=== PATIENT | female | born 1935 | race Caucasian/White ===

== ENCOUNTER → 2023-07-06 12:33 | Outpatient (REF) | payer MEDICARE, BC, SELFPAY | LOC: RAD 12:33 | PROVIDERS: ATTENDING PHYSICIAN Internal Medicine Cardiovascular Disease; FAMILY PHYSICIAN Internal Medicine Rheumatology | DX: M79.604 Pain in right leg (principal); M79.605 Pain in left leg | CPT/HCPCS: 93922; 93925 ==

== ENCOUNTER → 2023-12-16 10:46 | Outpatient (REF) | payer MEDICARE, BC, SELFPAY | LOC: HWRAD 10:46 | PROVIDERS: ATTENDING PHYSICIAN Internal Medicine Rheumatology | DX: M81.0 Age-related osteoporosis without current pathological fracture (principal) | CPT/HCPCS: 77080; 77081 ==

== ENCOUNTER 2025-01-16 07:33 | Emergency (ER) | payer MEDICARE, BC, SELFPAY ==
[2025-01-16] VITALS (8 sets, daily range): BP systolic 119–162; BP diastolic 51–82; BMI 21.7
--- NOTE | 2025-01-16 08:10 | ED.GENMED ---
History of Present Illness
<Yadira Linda PA-C - Last Filed: 01/16/25 15:05>
General
Chief Complaint: Fall
Source: patient and family
Exam Limitations: none
Time Seen by Provider: 01/16/25 07:58
History of Present Illness
History of Present Illness:
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 Patient was walking up the stairs around 9 PM. There was a light bulb that was out. She deals with chronic
vertigo and became dizzy and disoriented and was unable to see the step. She fell backwards down approximately 4 steps. She remembers waking up on the floor and believes she lost consciousness. Patient got up after the fall and went to bed but
she was unable to sleep all night due to neck pain and a headache. She arrives with bilateral periorbital ecchymosis and is unable to open her right eye. She denies any visual changes prior to this swelling developing. She also has bilateral
shoulder pain. She does not take any blood thinners. Cervical collar placed in triage.
Phy Exam
<Yadira Linda PA-C - Last Filed: 01/16/25 15:05>
General Physical Exam
General Presentation: no apparent distress
General Skin: warm and dry
General Habitus: elderly
General Mental: alert
ENT Exam
ENT Exam: other (Large amount of R periorbital ecchymosis extending to the R temporal region. Unable to visualize eye 2/2 degree of swelling. Small amount of L periorbital ecchymosis. )
Additional ENT: Cervical collar in place.
Eye Exam
Eye Exam: other (L pupil is round and reactive)
Pulmonary Exam
Pulmonary Exam: lungs clear, no respiratory distress, no rales, chest non tender, no crackles, no rhonchi and no wheezing
Gastrointestinal Exam
Gastrointestinal Exam: non tender, soft and non distended
Neurological Exam
Neurological Exam: alert
[place] Coma Scale
Eye Opening: Spontaneous
Verbal Response: Oriented
Motor Response: Obeys Commands
GCS Total Score: 15
Skin Exam
Skin Exam: warm/dry and other (Contusion to R posterior shoulder)
Psychiatric Exam
Psychiatric Exam: normal mood/affect
<Demarco Madrid DO - Last Filed: 01/16/25 09:38>
[place] Coma Scale
GCS Total Score: 15
Course
<Yadira Linda PAAndrea - Last Filed: 01/16/25 15:05>
Orders/Labs/Results
Orders:
Orders
01/16/25 08:06
CT Cervical Spine W/o Iv Contr Urgent
Comment:
Reason For Exam: fall, neck pain
CT Facial Bones W/o Iv Contras Urgent
Comment:
Reason For Exam: fall, bilateral periorbital ecchymosis
Ice Pack-Treatment DIRECTED
Location: R eye
Acetaminophen [Tylenol] 1,000 mg PO NOW STA
CR Shoulder - Left Min 2 View* Urgent
Comment:
Reason For Exam: pain, fall
CR Shoulder - Right Min 2 View Urgent
Comment:
Reason For Exam: pain, fall
01/16/25 08:07
CT Head W/o Iv Contrast Urgent
Comment:
Reason For Exam: fall, head injury
01/16/25 08:22
Complete Blood Count/With Diff Urgent
Comprehensive Metabolic Panel Urgent
PTT Urgent
Prothrombin Time Urgent
01/16/25 09:37
Morphine Sulfate 4 mg IV NOW STA
01/16/25 13:44
Morphine Sulfate 4 mg IV NOW STA
Abnormal Lab Results
01/16/25
08:22
WBC 14.3 H 10^3/uL
(4.8-10.8)
RBC 3.23 L 10^6/uL
(4.20-5.40)
Hgb 10.2 L g/dL
(12.0-16.0)
Hct 30.4 L %
(37.0-47.0)
MCH 31.6 H pg
(27.0-31.0)
Plt Count 33 L 10^3/uL
(130-400)
Abs Immat Gran (auto) 0.1 H 10^3/uL
(0-0.05)
Absolute Neuts (auto) 11.2 H 10^3/uL
(1.4-6.5)
Absolute Monos (auto) 1.0 H 10^3/uL
(0.1-0.6)
Neutrophils % 78.2 H %
(42.2-75.2)
Lymphocytes % 13.3 L %
(20.5-51.1)
BUN 25 H mg/dl
(7-17)
Glucose 115 H mg/dl
(70-99)
Calcium 10.5 H mg/dl
(8.4-10.2)
01/16/25 08:22
01/16/25 08:22
Vital Signs
Initial and Last Documented VS:
Initial Vital Signs
Temp Pulse Resp BP Pulse Ox
99.0 F 102 18 162/79 98
01/16/25 07:34 01/16/25 07:34 01/16/25 07:34 01/16/25 07:34 01/16/25 07:34
Last Documented Vital Signs
Temp Pulse Resp BP Pulse Ox
98.2 F 86 18 121/51 96
01/16/25 11:00 01/16/25 14:00 01/16/25 14:00 01/16/25 14:00 01/16/25 13:00
<Demarco Madrid, DO - Last Filed: 01/16/25 09:38>
Orders/Labs/Results
Orders:
Orders
01/16/25 08:06
CT Cervical Spine W/o Iv Contr Urgent
Comment:
Reason For Exam: fall, neck pain
CT Facial Bones W/o Iv Contras Urgent
Comment:
Reason For Exam: fall, bilateral periorbital ecchymosis
Ice Pack-Treatment DIRECTED
Location: R eye
Acetaminophen [Tylenol] 1,000 mg PO NOW STA
CR Shoulder - Left Min 2 View* Urgent
Comment:
Reason For Exam: pain, fall
CR Shoulder - Right Min 2 View Urgent
Comment:
Reason For Exam: pain, fall
01/16/25 08:07
CT Head W/o Iv Contrast Urgent
Comment:
Reason For Exam: fall, head injury
01/16/25 08:22
Complete Blood Count/With Diff Urgent
Comprehensive Metabolic Panel Urgent
PTT Urgent
Prothrombin Time Urgent
01/16/25 09:37
Morphine Sulfate 4 mg IV NOW STA
01/16/25 13:44
Morphine Sulfate 4 mg IV NOW STA
Abnormal Lab Results
01/16/25
08:22
WBC 14.3 H 10^3/uL
(4.8-10.8)
RBC 3.23 L 10^6/uL
(4.20-5.40)
Hgb 10.2 L g/dL
(12.0-16.0)
Hct 30.4 L %
(37.0-47.0)
MCH 31.6 H pg
(27.0-31.0)
Plt Count 33 L 10^3/uL
(130-400)
Abs Immat Gran (auto) 0.1 H 10^3/uL
(0-0.05)
Absolute Neuts (auto) 11.2 H 10^3/uL
(1.4-6.5)
Absolute Monos (auto) 1.0 H 10^3/uL
(0.1-0.6)
Neutrophils % 78.2 H %
(42.2-75.2)
Lymphocytes % 13.3 L %
(20.5-51.1)
BUN 25 H mg/dl
(7-17)
Glucose 115 H mg/dl
(70-99)
Calcium 10.5 H mg/dl
(8.4-10.2)
01/16/25 08:22
01/16/25 08:22
Vital Signs
Initial and Last Documented VS:
Initial Vital Signs
Temp Pulse Resp BP Pulse Ox
99.0 F 102 18 162/79 98
01/16/25 07:34 01/16/25 07:34 01/16/25 07:34 01/16/25 07:34 01/16/25 07:34
Last Documented Vital Signs
Temp Pulse Resp BP Pulse Ox
98.2 F 86 18 121/51 96
01/16/25 11:00 01/16/25 14:00 01/16/25 14:00 01/16/25 14:00 01/16/25 13:00
<Yadira Linda PA-C - Last Filed: 01/16/25 15:05>
MDM/Problems Addressed
Differential Diagnosis Includes:
89yoF here after a fall last night. Fell backwards down 4 steps. Thinks she lost consciousness. Arrives with a headache and neck pain. Large amount of R periorbital ecchymosis noted on exam and I am unable to visualize R eye. Hx of ITP. Differential
diagnosis includes but is not limited to: intracranial hemorrhage, fracture, globe rupture
Initial ED plan: Check basic labs, CT head/facial bones/cervical spine, and bilateral shoulder x-rays. Ice and Tylenol for pain.
<Yadira Linda PA-C - Last Filed: 01/16/25 15:05>
*Pulse Oximetry
SaO2: 97
Oxygen Mode of Delivery: Room air
Patient hypoxic: no
*Critical Care Note
Total Time (30-74mins, 75-104mins- exclusive of procedures): 35
<Yadira Linda PA-C - Last Filed: 01/16/25 15:05>
Update Note
Update Note:
Imaging reveals a type II odontoid fracture. No other injuries on CT. Platelet count 33. Cervical collar in place. Findings discussed with patient and family and reviewed need for transfer to trauma center with neurosurgical capabilities.
Family prefers [facility]. I initially spoke with the trauma attending at [facility] who requested that I speak with the spine team prior to patient being accepted. Significant delay getting in contact with spine team. I eventually received a call
back from the [facility] transfer rome and patient accepted by Dr. Rodriguez. Patient transported in stable condition. Neuro status changed throughout ED stay.
ED Attending Note
<Yadira Linda PA-C - Last Filed: 01/16/25 15:05>
-
Portions of this chart may have been created with voice recognition software.� Occasional wrong word or��sound alike� substitutions may have occurred due to the inherent limitations of voice recognition software.
<Demarco Madrid DO - Last Filed: 01/16/25 09:38>
ED Attending Note
Patient seen and examined by attending physician: Yes
I performed the substantive portion of visit, reviewed & personally made and approve the management plan that is documented in note by myself or AINSLEY.: Yes
ED Attending Note:
I have seen and evaluated the patient with a [id number] encounter. I have spoken to the advance practicer provider and involved in the medical history, the physical exam, medical decision making.
Evaluation and management service: agree unless noted differently below.
Results interpretation: agree unless noted differently below.
Focused HPI: 89-year-old female presenting with headache and neck pain after fall last night. Patient states she tripped. Patient complaining of neck pain. Cervical collar placed
Physical exam: Bruising and ecchymosis noted to right orbit. Patient in cervical collar. Patient moving all 4 extremities
Medical Decision Making: Given the fall, CT head, cervical spine and maxillofacial was performed. Patient found to have a type II dens fracture. Patient will require transfer to tertiary facility that has neurosurgical capabilities
Discharge Plan
Departure
Patient Disposition: Acute Care Hospital
Date of Disposition: 01/16/25
Time of Disposition: 12:33
Discharge Problem:
Closed type II fracture of odontoid process
Referrals:
Davion Guerrero DO [Family Provider, Rheumatology]
Hospital Transfer
Other hospital: [facility]
I certify that the patient requires transfer: Yes
Discussed case with accepting physician: Dr. Rodriguez
Reason for transfer: higher level of care, medical necessity, availability of service and specialties available
Interventions
Interventions:
*Risk Screen - Suicide Last Done: 01/16/25 07:34
*General Assessment Last Done: 01/16/25 07:34
*Neglect/Abuse Screening Last Done: 01/16/25 07:34
*Nursing Disposition Last Done: 01/16/25 14:51
ED-Musculoskeletal Assessment Last Done: 01/16/25 08:00
ED- Neurological Assessment Last Done: 01/16/25 08:00
ED-Skin Assessment Last Done: 01/16/25 08:00
Discharge Date and Time
Discharge Date/Time: 01/16/25 14:55
Print Language: CYMRO
[2025-01-16] MEDS: TYLENOL 1000 MG PO (08:26)
[2025-01-16 08:49] LABS: Hematocrit 30.4 % (37.0-47.0); Hemoglobin 10.2 g/dL (12.0-16.0); Mean Corp Hgb Conc. 33.6 g/dL (33.0-37.0); Mean Corpuscular Volume 94.1 fL (81.0-99.0); Nucleated Red Blood Cells % 0 %; Red Cell Dist. Width 13.8 % (11.5-14.5)
[2025-01-16 08:51] LABS: INR 1.02; PT 13.5 Sec (11.4-14.6)
[2025-01-16 08:52] LABS: APTT 28.1 Sec (23.4-35.0)
[2025-01-16 08:56] LABS: ALT (SGPT) 20 U/L (0-35); AST (SGOT) 34 U/L (14-36); Albumin 4.3 g/dl (3.5-5.0); Alkaline Phosphatase 92 U/L (38-126); Blood Urea Nitrogen 25 mg/dl (7-17); Calcium 10.5 mg/dl (8.4-10.2); Carbon Dioxide 25 mmol/L (22-30); Chloride 107 mmol/L (98-107); Estimated Creatinine Clearance 40 ml/min; Glucose 115 mg/dl (70-99); Potassium 4.4 mmol/L (3.5-5.1); Sodium 137 mmol/L (135-145); Total Protein 7.0 g/dl (6.3-8.2); eGFR > 60.00
[2025-01-16 09:07] LABS: Platelet Count 33 10^3/uL (130-400)
[2025-01-16] MEDS: MORPHINE SULFATE 4 MG IV ×2 (09:42→13:56)
== END 2025-01-16 14:55 | disposition short-term general hospital (02) ==
LOC: EMR 07:33
PROVIDERS: Physician Assistant; EMERGENCY PHYSICIAN Student in an Organized Health Care Education/Training Program; FAMILY PHYSICIAN Internal Medicine Rheumatology
DX: S12.110A Anterior displaced Type II dens fracture, initial encounter for closed fracture (principal); S00.11XA Contusion of right eyelid and periocular area, initial encounter; S00.12XA Contusion of left eyelid and periocular area, initial encounter; M25.512 Pain in left shoulder; M25.511 Pain in right shoulder; W10.8XXA Fall (on) (from) other stairs and steps, initial encounter; Z86.2 Personal history of diseases of the blood and blood-forming organs and certain disorders involving the immune mechanism
CPT/HCPCS: 99291; 96374; 96376; 70450; 70486; 72125; 73030; 80053; 85025; 85610; 85730

== ENCOUNTER 2025-02-03 22:32 | Inpatient (IN) | payer MEDICARE, BC, SELFPAY ==
[2025-02-03] VITALS (14 sets, daily range): BP systolic 91–139; BP diastolic 43–115; BMI 22.3
[2025-02-03 13:42] LABS: Hematocrit 28.6 % (37.0-47.0); Hemoglobin 9.0 g/dL (12.0-16.0); Mean Corp Hgb Conc. 31.5 g/dL (33.0-37.0); Mean Corpuscular Volume 97.3 fL (81.0-99.0); Nucleated Red Blood Cells % 0 %; Platelet Count 9 10^3/uL (130-400); Red Cell Dist. Width 15.4 % (11.5-14.5)
[2025-02-03 13:56] LABS: ALT (SGPT) 11 U/L (0-35); AST (SGOT) 16 U/L (14-36); Albumin 3.5 g/dl (3.5-5.0); Alkaline Phosphatase 101 U/L (38-126); Blood Urea Nitrogen 26 mg/dl (7-17); Calcium 8.8 mg/dl (8.4-10.2); Carbon Dioxide 25 mmol/L (22-30); Chloride 108 mmol/L (98-107); Glucose 87 mg/dl (70-99); Potassium 4.5 mmol/L (3.5-5.1); Sodium 136 mmol/L (135-145); Total Protein 6.0 g/dl (6.3-8.2); eGFR > 60.00
--- NOTE | 2025-02-03 17:56 | ED.GENMED ---
History of Present Illness
<Brad Almodovar PA-C - Last Filed: 02/03/25 20:29>
General
Chief Complaint: Abdominal Symptoms
Source: patient
Exam Limitations: none
Time Seen by Provider: 02/03/25 17:24
History of Present Illness
History of Present Illness:
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 She notes she is having a
loose stool every 3 to 4 days. The daughter states it is very foul in odor and she is concerned she may have C. difficile. While at [facility], the patient developed a urinary tract infection was on Macrobid for about a week. The stool was not
black in color. They deny any new bleeding or bruising but still no resolving bruising over the face and chest from her prior fall. She was recently cleared from having to wear the collar at all times by the neurosurgeon. She is still to wear
collar when ambulating. Patient notes generalized fatigue and abdominal discomfort as well. There has been no fever or vomiting. No chest pain. No other complaints. Upon discharge from [facility] her platelet count was 50.
Phy Exam
<Brad Almodovar PA-C - Last Filed: 02/03/25 20:29>
Physical Exam
Physical Exam:
General: Cachectic female no acute respiratory distress
HEENT: Normal cephalic ecchymosis noted in the forehead face and neck which seems to be not new
Heart: Regular rate and rhythm
Lungs: Clear no wheeze
Abdomen soft diffusely tender nondistended
Extremities: Mild edema bilateral lower extremities
Course
<Brad Almodovar PA-C - Last Filed: 02/03/25 20:29>
Orders/Labs/Results
Orders:
Orders
02/03/25 13:25
Crisis Consult Urgent
Reason for Consult: depression
02/03/25 13:28
Complete Blood Count/With Diff Urgent
Comprehensive Metabolic Panel Urgent
02/03/25 17:53
CT Abd/pel Without Iv Or Oral Urgent
Comment:
Reason For Exam: abd pain, diarrhea
02/03/25 17:56
STOOL [C difficile Antigen & Toxins] Urgent
MELODY Source: Feces/Stool
Specimen Description:
Stool Culture Urgent
MELODY Source: Feces/Stool
Specimen Description:
02/03/25 18:15
Type+Screen Urgent
NT-proBNP Urgent
02/03/25 18:22
Morphine Sulfate 4 mg IV NOW STA
02/03/25 18:28
Blood Bank Products [* Blood Bank Products] Urgent
Blood Bank Products: *Plt Single Donor Leuko
Quantity: 1
Transfuse Today: Yes
Reason: Thrombocytopenia
02/03/25 18:29
Dexamethasone Sod Phosphate [Decadron] 10 mg IV NOW STA
02/03/25 20:24
0.9% Sodium Chloride 500 ml [Nss] 500 ml IV BOLUS
Abnormal Lab Results
02/03/25
13:28
WBC 12.8 H 10^3/uL
(4.8-10.8)
RBC 2.94 L 10^6/uL
(4.20-5.40)
Hgb 9.0 L g/dL
(12.0-16.0)
Hct 28.6 L %
(37.0-47.0)
MCHC 31.5 L g/dL
(33.0-37.0)
RDW 15.4 H %
(11.5-14.5)
Plt Count 9 L* 10^3/uL
(130-400)
MPV 14.2 H fL
(7.4-10.4)
Abs Immat Gran (auto) 0.1 H 10^3/uL
(0-0.05)
Absolute Neuts (auto) 9.5 H 10^3/uL
(1.4-6.5)
Absolute Monos (auto) 0.9 H 10^3/uL
(0.1-0.6)
Lymphocytes % 13.4 L %
(20.5-51.1)
Chloride 108 H mmol/L
(98-107)
BUN 26 H mg/dl
(7-17)
Total Protein 6.0 L g/dl
(6.3-8.2)
02/03/25 13:28
02/03/25 13:28
Vital Signs
Initial and Last Documented VS:
Initial Vital Signs
Temp Pulse Resp BP Pulse Ox
98.3 F 80 19 109/43 98
02/03/25 13:17 02/03/25 13:17 02/03/25 13:17 02/03/25 13:17 02/03/25 13:17
Last Documented Vital Signs
Temp Pulse Resp BP Pulse Ox
98.3 F 84 13 139/47 96
02/03/25 13:17 02/03/25 18:45 02/03/25 18:45 02/03/25 18:16 02/03/25 18:45
<Demarco Madrid, DO - Last Filed: 02/03/25 18:27>
Orders/Labs/Results
Orders:
Orders
02/03/25 13:25
Crisis Consult Urgent
Reason for Consult: depression
02/03/25 13:28
Complete Blood Count/With Diff Urgent
Comprehensive Metabolic Panel Urgent
02/03/25 17:53
CT Abd/pel Without Iv Or Oral Urgent
Comment:
Reason For Exam: abd pain, diarrhea
02/03/25 17:56
STOOL [C difficile Antigen & Toxins] Urgent
MELODY Source: Feces/Stool
Specimen Description:
Stool Culture Urgent
MELODY Source: Feces/Stool
Specimen Description:
02/03/25 18:15
Type+Screen Urgent
NT-proBNP Urgent
02/03/25 18:22
Morphine Sulfate 4 mg IV NOW STA
02/03/25 18:28
Blood Bank Products [* Blood Bank Products] Urgent
Blood Bank Products: *Plt Single Donor Leuko
Quantity: 1
Transfuse Today: Yes
Reason: Thrombocytopenia
02/03/25 18:29
Dexamethasone Sod Phosphate [Decadron] 10 mg IV NOW STA
02/03/25 20:24
0.9% Sodium Chloride 500 ml [Nss] 500 ml IV BOLUS
Abnormal Lab Results
02/03/25
13:28
WBC 12.8 H 10^3/uL
(4.8-10.8)
RBC 2.94 L 10^6/uL
(4.20-5.40)
Hgb 9.0 L g/dL
(12.0-16.0)
Hct 28.6 L %
(37.0-47.0)
MCHC 31.5 L g/dL
(33.0-37.0)
RDW 15.4 H %
(11.5-14.5)
Plt Count 9 L* 10^3/uL
(130-400)
MPV 14.2 H fL
(7.4-10.4)
Abs Immat Gran (auto) 0.1 H 10^3/uL
(0-0.05)
Absolute Neuts (auto) 9.5 H 10^3/uL
(1.4-6.5)
Absolute Monos (auto) 0.9 H 10^3/uL
(0.1-0.6)
Lymphocytes % 13.4 L %
(20.5-51.1)
Chloride 108 H mmol/L
(98-107)
BUN 26 H mg/dl
(7-17)
Total Protein 6.0 L g/dl
(6.3-8.2)
02/03/25 13:28
02/03/25 13:28
Vital Signs
Initial and Last Documented VS:
Initial Vital Signs
Temp Pulse Resp BP Pulse Ox
98.3 F 80 19 109/43 98
02/03/25 13:17 02/03/25 13:17 02/03/25 13:17 02/03/25 13:17 02/03/25 13:17
Last Documented Vital Signs
Temp Pulse Resp BP Pulse Ox
98.3 F 84 13 139/47 96
02/03/25 13:17 02/03/25 18:45 02/03/25 18:45 02/03/25 18:16 02/03/25 18:45
<Brad Almodovar PA-C - Last Filed: 02/03/25 20:29>
MDM/Problems Addressed
Differential Diagnosis Includes:
Patient with fatigue abdominal pain loose stool recent antibiotic and hospital stay. Consider colitis versus enteritis versus C. difficile versus electrolyte abnormality. She does have a history of idiopathic thrombocytopenia. Will check labs.
<Brad Almodovar PA-C - Last Filed: 02/03/25 20:29>
*Pulse Oximetry
SaO2: 98
Patient hypoxic: no
*Critical Care Note
Total Time (30-74mins, 75-104mins- exclusive of procedures): Not Applicable
<Brad Almodovar PA-C - Last Filed: 02/03/25 20:29>
Update Note
Update Note:
CT demonstrates colitis of the distal colon. Labs reviewed white count 12.8. Platelets are 9. Consent signed for platelet transfusion. Unit ordered. Decadron given. Patient afebrile with stable vital signs otherwise. She has brown stool that
is heme-negative on exam. Will admit for colitis pending stool studies with thrombocytopenia
ED Attending Note
<Brad Almodovar PA-C - Last Filed: 02/03/25 20:29>
-
Portions of this chart may have been created with voice recognition software.� Occasional wrong word or��sound alike� substitutions may have occurred due to the inherent limitations of voice recognition software.
<Demarco Madrid DO - Last Filed: 02/03/25 18:27>
ED Attending Note
Patient seen and examined by attending physician: Yes
I performed the substantive portion of visit, reviewed & personally made and approve the management plan that is documented in note by myself or AINSLEY.: Yes
ED Attending Note:
I have seen and evaluated the patient with a [id number] encounter. I have spoken to the advance practicer provider and involved in the medical history, the physical exam, medical decision making.
Evaluation and management service: agree unless noted differently below.
Results interpretation: agree unless noted differently below.
Focused HPI: 89-year-old female presenting for evaluation of abdominal discomfort, weakness, fatigue and diarrhea. Patient was recently on Macrobid for UTI. Family at bedside has medical background and concerned that the stool smelled like C.
difficile. Of note, patient had a recent fall and diagnosed with a C2 fracture which is treated medically
Physical exam: Dry mucous membranes. Old bruising noted to face. No significant abdominal tenderness noted
Medical Decision Making: Given her age, will obtain CT looking for any intra-abdominal pathology to explain her pain. Patient found to be thrombocytopenic. She does have a history of ITP. Will transfuse platelets while providing IV steroids.
Will try and obtain stool culture for C. difficile
Discharge Plan
Departure
Patient Disposition: Admit
Date of Disposition: 02/03/25
Time of Disposition: 20:28
Presentation/result/management discussed w/ accepting MD/DO: Hospitalist
Discharge Problem:
Thrombocytopenia, Colitis
Prescriptions:
No Action
valsartan 80 mg Tablet
80 mg PO DAILY
carvedilol [Coreg] 3.125 mg Tablet
3.125 mg PO BID
escitalopram oxalate [Lexapro] 5 mg Tablet
5 mg PO HS
ezetimibe-simvastatin 10-40 mg Tablet
1 tab PO DAILY
lidocaine 4 % Adhesive Patch,Medicated
1 patch TOPICAL DAILYPRN PRN (Reason: back of neck)
cyanocobalamin (vitamin B-12) 1,000 mcg Tablet
1,000 mcg PO DAILY
acetaminophen [Tylenol Extra Strength] 500 mg Tablet
1,000 mg PO Q6HPRN PRN (Reason: mild pain)
ascorbic acid (vitamin C) [Vitamin C] 500 mg Tablet
500 mg PO DAILY
carboxymethylcellulose sodium [Refresh Tears] 0.5 % Drops
1 drp BOTH EYES BIDPRN PRN (Reason: dryness)
ferrous sulfate 325 mg (65 mg iron) Tablet
325 mg PO Q48H
nicotine 21 mg/24 hr Patch 24 Hour
1 patch TRANSDERMAL DAILY
gabapentin 100 mg Capsule
100 mg PO TID
PreserVision AREDS 2,148 mcg-113 mg-45 mg-17.4mg Tablet
1 tab PO BID
baclofen 5 mg Tablet
2.5 mg PO BID
Referrals:
Davion Guerrero DO [Family Provider, Rheumatology]
Interventions
Interventions:
*General Assessment Last Done: 02/03/25 13:20
*Neglect/Abuse Screening Last Done: 02/03/25 13:20
*ED COVID-19 Vaccine History Last Done: 02/03/25 13:20
*ED Influenza Vaccine History Last Done: 02/03/25 13:20
[facility] Fall Risk Assessment Tool Last Done: 02/03/25 18:14
*Risk Screen - Suicide (C-SSRS) Last Done: 02/03/25 13:20
RF-Afmayb-[id number] Assessment Last Done: 02/03/25 18:15
Discharge Date and Time
Print Language: PALAUAN
[2025-02-03] MEDS: MORPHINE SULFATE 4 MG IV (18:37)
[2025-02-03] MEDS: DECADRON 10 MG IV (18:38)
--- NOTE | 2025-02-03 20:50 | HPS.HSE ---
Family Physician
-
Family Physician: Davion Guerrero
Chief Complaint
-
abdominal pain and foul smelling stools
History of Present Illness
Patient is a 89-year-old female with past medical history significant for hypertension, hyperlipidemia, thrombocytopenia, anemia, osteopenia, ulcerative proctitis and depression/anxiety who presented to [facility] ED for evaluation of abdominal pain and
foul smelling stools. Patient with recent hospitalization at [facility]. Patient sustained a fall on 01/15/2025, found to have C2 fracture and transferred to [facility]. During stay at [facility] patient was started on Macrobid for UTI. Since discharge and returning
home patient and daughter report loose stools and foul smelling stool. She also endorses intermittent chills and increased fatigue over past 3 days. Denies fevers, cough, shortness of breath, chest pain, nausea, vomiting, constipation or urinary
symptoms.
Medical History
Past Medical History
Past Medical History: Reports Other
Additional Past Medical History:
hypertension
hyperlipidemia
thrombocytopenia
anemia
osteopenia
ulcerative proctitis
depression/anxiety
Past Surgical History: Reports Other
Additional Past Surgical History:
Hysteroscopy/em ablation(1995)
Bone Marrow [id number]
Social History
Tobacco: Smoker (1/2 pack per day, last cigarette 01/15/2025, currently using patch )
Alcohol: None
Drug: None
Living: Alone
Employment: Employed
Family History
Family History: Not pertinent
Allergies / Home Medications
Allergies reflects when Allergies were last updated in [employer].
Home Medications with original date entered in [employer]
Allergy/Medication List:
Allergies
Allergy/AdvReac Type Severity Reaction Status Date / Time
No Known Allergies Allergy Unverified 01/16/25 07:40
Home Medications
acetaminophen 500 mg tablet (Tylenol Extra Strength) 1,000 mg PO Q6HPRN PRN mild pain 02/03/25
ascorbic acid (vitamin C) 500 mg tablet (Vitamin C) 500 mg PO DAILY Supplement 02/03/25
baclofen 5 mg tablet 2.5 mg PO BID Muscle Spasms 02/03/25
carboxymethylcellulose sodium 0.5 % eye drops (Refresh Tears) 1 drp BOTH EYES BIDPRN PRN dryness 02/03/25
carvedilol 3.125 mg tablet (Coreg) 3.125 mg PO BID Blood Pressure 02/03/25
cyanocobalamin (vitamin B-12) 1,000 mcg tablet 1,000 mcg PO DAILY Supplement 02/03/25
escitalopram oxalate 5 mg tablet (Lexapro) 5 mg PO HS Mental Health/Anxiety 02/03/25
ezetimibe 10 mg-simvastatin 40 mg tablet 1 tab PO DAILY High Cholesterol 02/03/25
ferrous sulfate 325 mg (65 mg iron) tablet 325 mg PO Q48H Supplement 02/03/25
gabapentin 100 mg capsule 100 mg PO TID Neurological Condition 02/03/25
lidocaine 4 % topical patch 1 patch topical DAILYPRN PRN back of neck 02/03/25
nicotine 21 mg/24 hr daily transdermal patch 1 patch transdermal DAILY 02/03/25
valsartan 80 mg tablet 80 mg PO DAILY Heart Disease/Condition 02/03/25
vitamins A,C,N-mvdq-dagynv 2,148 mcg-113 mg-45 mg-17.4 mg tablet (PreserVision AREDS) 1 tab PO BID Supplement 02/03/25
Review of Systems
-
History Source: Patient
Constitutional: Reports Chills; Denies Fever
EENT: Denies Sore Throat
Respiratory: Denies Cough, Hemoptysis or Trouble Breathing
Cardiac: Denies Chest Pain, Diaphoresis, Palpitations or Syncope
Abdomen/GI: Reports Abdominal Pain and Diarrhea; Denies Nausea or Vomiting
: Denies Dysuria, Frequency or Urgency
Musculoskeletal: Denies Joint Pain
Skin: Denies Rash
Neurological: Denies Dizzy, Headache, Weakness or Numbness
Physical Exam
Vital Signs
Vital Signs
Temp Pulse Resp BP Pulse Ox
98.3 F 84 13 139/47 96
02/03/25 13:17 02/03/25 18:45 02/03/25 18:45 02/03/25 18:16 02/03/25 18:45
Physical Exam
General: Well Developed, Well Nourished, No Apparent Distress, Comfortable and Conversant
HEENT: NormoCephalic, Moist mucous membranes, PERRLA, Nose Appears Normal and Ears Appear Normal
Respiratory: Clear and Non Labored Respirations; No Wheezes, Rales or Rhonchi
Cardiac: S1/S2 and Regular Rhythm; No Murmur, Rub or Gallop
GI: Soft, Non Tender, Non Distended and Normal Bowel Sounds
Musculoskeletal: No Clubbing, No Cyanosis and No Edema
Skin: Warm, IV/Catheter Site and Other (diffuse healing bruising noted over head and body from fall on 01/15/2025)
Neuro: Awake and AO x 3
Psych: Calm and Intact Judgment/Insight
Laboratory Results
-
02/03/25 13:28
02/03/25 13:28
Laboratory Results
Total Bilirubin 0.4 mg/dl (0.2-1.3) 02/03/25 13:28
AST 16 U/L (14-36) 02/03/25 13:28
ALT 11 U/L (0-35) 02/03/25 13:28
Alkaline Phosphatase 101 U/L (38-126) 02/03/25 13:28
Data Reviewed
-
Lab Data: Labs Reviewed by me (WBC 12.8, hgb 9.0, hct 28.6, plt 9)
Impression/Plan
-
IMPRESSION/PLAN:
#abdominal pain, foul smelling stool 2/2 c. diff vs. colitis vs. enteritis
foul smelling loose stool, chills and increased fatigue
WBC 12.8
Abd/Pel CT: Mild to moderate wall thickening of the descending colon and sigmoid colon, most suggestive of a nonspecific colitis. Limited by absence of intravenous and oral contrast.
Other chronic findings, as detailed above.
- Admit to med/surg
- Consult GI
- hold on ABX for now
- IVF NS 80cc/hr
#thrombocytopenia
plt 9
- Consult hematology
- no active GIB
- blood consent obtained in ED, scanned to chart
- 1 unit platelets ordered
- trend CBC
#hypertension
- continue carvedilol and valsartan
#hyperlipidemia
- continue ezetimibe-simvastatin
#anemia
hgb 9.0, hct 28.6
- trend H/H
- continue ferrous sulfate
#depression/anxiety
- continue escitalopram
#nicotine dependency
- continue patch
- encourage continue cessation
#osteopenia
#ulcerative proctitis
Code status: DNR
DVT prophylaxis: SCDs
--- NOTE | 2025-02-03 20:58 | W.PN.UPDATE ---
Update Note
Progress Note Update
This note serves as an addendum to the H&P by driving teacher Agata Stevens
HPI
89F
PHX significant HX ITP
- recent HX fall with C2 Fx seen at ER then transferred to [place]
- pw generalized weakness and ongoing loose stooll every 3 to 4 days.
- Daughter reports very foul in odor and concerned about C. difficile. The stool was not black in color.
- While at [facility], the patient developed UTI was on Macrobid for about a week.
- deny any new bleeding or bruising but still no resolving bruising over the face and chest from her prior fall.
- recently cleared from having to wear the collar at all times by the neurosurgeon- still to wear collar when ambulating.
- generalized fatigue and abdominal discomfort as well.
- no fever or vomiting.
- no chest pain
Upon discharge from [facility] her platelet count was 50.
Relevant VS
Temp Pulse Resp BP Pulse Ox
99.3 F 89 14 112/49 94
02/03/25 21:07 02/03/25 21:07 02/03/25 21:07 02/03/25 21:07 02/03/25 20:58
PE
Gen: Cachectic , NAD
HEENT: ecchymosis noted in the forehead, face and neck which seems to be not new
Neck: supple
Lungs: CTA
Cor: RRR S1 S2
Abdomen:� Soft NT
CADD MANAGER: NFND
MS: B/l Kerline mild edema
Psych:
Relevant Data
01/16/25 02/03/25
WBC 14.3 H 12.8 H
Hgb 10.2 L 9.0 L
Plt Count 33 L 9 L*
02/03/25
13:28
Chloride 108 H
Creatinine 0.9
eGFR > 60.00
CT AP
- Mild to moderate wall thickening of the descending colon and sigmoid colon, most suggestive of a nonspecific colitis.
Limited by absence of intravenous and oral contrast.
- Other chronic findings, as detailed above.
01/16/[address] spine wo contrast
Transverse type II fracture through the dens with no significant displacement.
No prior hospitalist admission:
ASSESSMENT & PLAN
NOS Colitis DDX : Infection, Toxigenic
Low grade fever, mild Leucocytosis
- stool for C Diff
- stool Cx
- Hold off ABx for now
- Empiric IVF
- GI consult
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
- No active GIB
- NEG HoB brown stool per ER FURNACE STOCK INSPECTOR
- agree with Single donor Platelet Tx
- Heme consult
DVT Px: SCD
Full code
IP MS
case dw patient and daughter and sson in law ( pharmacist)
[2025-02-03] MEDS: NSS 500 IV (21:14)
[2025-02-04] VITALS (15 sets, daily range): BP systolic 106–129; BP diastolic 51–67
[2025-02-04] MEDS: NSS 1000 IV ×2 (00:38→12:37)
[2025-02-04] MEDS: TYLENOL 650 MG PO ×2 (00:43→14:06)
[2025-02-04] MEDS: NEURONTIN 100 MG PO ×4 (03:09→21:06)
[2025-02-04] MEDS: LEXAPRO 5 MG PO ×2 (03:10→21:04)
[2025-02-04 06:13] LABS: Blood Urea Nitrogen 19 mg/dl (7-17); Calcium 8.2 mg/dl (8.4-10.2); Carbon Dioxide 20 mmol/L (22-30); Chloride 111 mmol/L (98-107); Estimated Creatinine Clearance 47 ml/min; Glucose 131 mg/dl (70-99); Hematocrit 26.8 % (37.0-47.0); Hemoglobin 8.6 g/dL (12.0-16.0); Mean Corp Hgb Conc. 32.1 g/dL (33.0-37.0); Mean Corpuscular Volume 96.8 fL (81.0-99.0); Platelet Count 14 10^3/uL (130-400); Potassium 4.5 mmol/L (3.5-5.1); Red Cell Dist. Width 14.8 % (11.5-14.5); Sodium 137 mmol/L (135-145); eGFR > 60.00
--- NOTE | 2025-02-04 06:49 | CON.GI ---
Consultation
-
Date/Time Consultation Requested: 02/04/25 00:53
Date/Time Consultation Performed: 02/04/25 0649
Requesting Provider: MALOU Leon
Performing Provider: Von Perez DO
Reason for Consultation: Colitis
Medical History
Chief Complaint / HPI
Chief Complaint: Abdominal pain and foul smelling stools
History of Present Illness:
Ms. 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
with abdominal pain and diarrhea. Found to have colitis on CT imaging and GI has been consulted for further evaluation and management.
Patient reports prior hospitalization at [facility] where she sustained a fall back on 01/15/2025 found to have C2 fracture along with diagnosis of UTI. She was prescribed Macrobid for about 1 week and was discharged with follow-up with her
neurosurgeon. However, reports significant looser stools and generalized weakness. Unable to reach family, however her daughter was reportedly concern for a very foul odorous smell and concern for possible C. difficile. Patient denies any prior
history of C. difficile in the past. Denies any recent bowel movement since her admission or yesterday. Was reportedly having profuse, nonbloody watery stools without any bloody bowel months or rectal bleeding. She does note a prior history of
ulcerative proctitis diagnosed 15-20 years ago (no records of this) and has remained off therapy. She notes 3 prior colonoscopies which were reportedly normal and felt to be in remission. Otherwise, she denies any fevers, chills, nausea/vomiting,
or other constitutional symptoms. Currently, she denies any further abdominal discomfort and reports feeling well and hoping to have more solid food. She has yet to have a bowel movement in the ED.
In the ED, patient was afebrile and HD-stable. Labs notable for BUN 26, Restaurant Shift Leader 0.9, and normal LFTs. CBC with WBC 12.8, Hgb 9.0 (prev 10.2 on 01/2025), and plts 9. CT Abdomen/pelvis w/out IV/oral contrast revealed mild to moderate wall thickening of
the descending colon and sigmoid colon, most suggestive of a nonspecific colitis. Heme (-) brown stool in ED. She was started on IVF, stool cultures were ordered, and antibiotics were held given concern for possible C Diff.
Past Medical History
Past Medical History: Other (hypertension hyperlipidemia thrombocytopenia anemia osteopenia ulcerative proctitis depression/anxiety Past Surgical History: Reports Other Additional Past Surgical History: Hysteroscopy/em ablation(1995) Bone Marrow
[id number])
Past Surgical History: None
Social History
Tobacco: Smoker
Alcohol: None
Drug: None
Living: Alone
Family History
Family History: Reviewed & Not Pertinent
Allergies / Home Medications
Allergy/AdvReac Type Severity Reaction Status Date / Time
No Known Allergies Allergy Unverified 01/16/25 07:40
�Medication �Instructions �Recorded
acetaminophen 500 mg tablet 1,000 mg PO Q6HPRN PRN mild pain 02/03/25
(Tylenol Extra Strength)
ascorbic acid (vitamin C) 500 mg 500 mg PO DAILY Supplement 02/03/25
tablet (Vitamin C)
baclofen 5 mg tablet 2.5 mg PO BID Muscle Spasms 02/03/25
carboxymethylcellulose sodium 0.5 1 drp BOTH EYES BIDPRN PRN dryness 02/03/25
% eye drops (Refresh Tears)
carvedilol 3.125 mg tablet (Coreg) 3.125 mg PO BID Blood Pressure 02/03/25
cyanocobalamin (vitamin B-12) 1,000 mcg PO DAILY Supplement 02/03/25
1,000 mcg tablet
escitalopram oxalate 5 mg tablet 5 mg PO HS Mental Health/Anxiety 02/03/25
(Lexapro)
ezetimibe 10 mg-simvastatin 40 mg 1 tab PO DAILY High Cholesterol 02/03/25
tablet
ferrous sulfate 325 mg (65 mg 325 mg PO Q48H Supplement 02/03/25
iron) tablet
gabapentin 100 mg capsule 100 mg PO TID Neurological 02/03/25
Condition
lidocaine 4 % topical patch 1 patch topical DAILYPRN PRN back 02/03/25
of neck
nicotine 21 mg/24 hr daily 1 patch transdermal DAILY 02/03/25
transdermal patch
valsartan 80 mg tablet 80 mg PO DAILY Heart 02/03/25
Disease/Condition
vitamins A,C,U-usuh-tbxwvj 2,148 1 tab PO BID Supplement 02/03/25
mcg-113 mg-45 mg-17.4 mg tablet
(PreserVision AREDS)
Review of Systems
-
All other systems: A 12 pt ROS was Negative except as stated above in HPI
Vital Signs
Temp Pulse Resp BP Pulse Ox
98.9 F 89 15 129/59 94
02/03/25 21:39 02/04/25 00:00 02/04/25 00:00 02/04/25 00:00 02/04/25 00:00
Physical Exam
Exam
General: Well Developed, Well Nourished, No Apparent Distress and Comfortable
HEENT: Normocephalic, Anicteric and Moist Mucous Membranes
Respiratory: Non Labored Respirations
Cardiac: Regular Rhythm
GI: Soft, Non Tender and Non Distended
Skin: Warm
Neuro: AO x 3 and Nonfocal/Grossly Intact
Psych: Calm
Results
WBC 11.8 10^3/uL (4.8-10.8) H 02/04/25 05:38
Hgb 8.6 g/dL (12.0-16.0) L 02/04/25 05:38
Hct 26.8 % (37.0-47.0) L 02/04/25 05:38
MCV 96.8 fL (81.0-99.0) 02/04/25 05:38
Plt Count 14 10^3/uL (130-400) L* D 02/04/25 05:38
Absolute Neuts (auto) 9.5 10^3/uL (1.4-6.5) H 02/03/25 13:28
Sodium 137 mmol/L (135-145) 02/04/25 05:38
Potassium 4.5 mmol/L (3.5-5.1) 02/04/25 05:38
Chloride 111 mmol/L (98-107) H 02/04/25 05:38
Carbon Dioxide 20 mmol/L (22-30) L 02/04/25 05:38
BUN 19 mg/dl (7-17) H 02/04/25 05:38
Creatinine 0.6 mg/dL (0.6-1.0) 02/04/25 05:38
Calcium 8.2 mg/dl (8.4-10.2) L 02/04/25 05:38
Total Bilirubin 0.4 mg/dl (0.2-1.3) 02/03/25 13:28
AST 16 U/L (14-36) 02/03/25 13:28
ALT 11 U/L (0-35) 02/03/25 13:28
Alkaline Phosphatase 101 U/L (38-126) 02/03/25 13:28
Diagnostic Image Results: No [facility] GI Records available for review. Reviewed CT Imaging as detailed above
Assessment / Plan
-
Ms. 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
with abdominal pain and diarrhea. Found to have colitis on CT imaging and GI has been consulted for further evaluation and management.
#Acute, Uncomplicated L-sided Colitis
#Non-Bloody, Watery Diarrhea
#Recent Abx (Macrobid from prior UTI)
#Mild Leukocytosis
#Hx of Ulcerative Proctitis (off therapy, reportedly in remission)
#Thrombocytopenia #History of ITP
Impression: Patient presenting with generalized lower abdominal discomfort, weakness and multiple episodes of watery, nonbloody looser stools after recent antibiotics (Macrobid) for UTI. Found to have mild leukocytosis along with left-sided, acute
uncomplicated colitis involving the sigmoid and descending colon. Clinically, presentation seems most consistent with C. difficile versus other infectious colitis. She does have a history of ulcerative proctitis however this has been
well-controlled and she was without any bloody stools or other chronicity of symptoms. Reports three prior colonoscopy years ago (no records) and reports everything as normal/in remission. Otherwise, she is without any other concern for ischemia
given her presentation and location on CT imaging. Currently, reports feeling well and without any BM since admission.
Recommendations:
- Okay for CLD, may ADAT to low-fiber, low-residue diet as tolerated
- Check stool studies: C Diff and stool culture
- Agree with holding antibiotics given concern for C. difficile
- No other concern for IBD/ulcerative proctitis given her symptoms and previously had a heme-negative brown stool
- No plans for colonoscopy at this time
- Appreciate hematology consult given her thrombocytopenia given her known ITP
- Strict avoidance of all NSAIDs
- Pain control and antiemetics as needed
- Rest of care as per primary team
GI will continue to follow.
Data Reviewed
-
Radiology: Image Personally Visualized and interpreted and Report Reviewed by me
CT Scan: Image Personally Visualized and interpreted and Report Reviewed by me
-
-
Thank you for consultation and allowing me to participate in the patient's care. Please call the advisory application developer GI physician during the after hours with any questions or concerns.
[2025-02-04] MEDS: NICODERM TRANSDERMAL 21 MG TRANSDERM (08:27)
[2025-02-04] MEDS: LIORESAL 2.5 MG PO ×2 (08:28→21:04)
[2025-02-04] MEDS: DIOVAN 80 MG PO (08:29)
[2025-02-04] MEDS: LIPITOR 20 MG PO (08:29)
[2025-02-04] MEDS: COREG 3.125 MG PO ×2 (08:29→21:05)
[2025-02-04] MEDS: FEOSOL 325 MG PO (08:29)
--- NOTE | 2025-02-04 08:41 | CM ---
Chart reviewed and spoke with pt at ED bedside
Recent fall C2 fx went to [place]
Per ortho no brace needed except when walking
Staying at dtr's 2 SH no TORITO
needs assistance with all ADLs ambulating with walker and cane
DME walker, cane and neck brace
PCP Davion Guerrero
[facility] in [place] where she used to live
no hx of VN nor SNF
DCP is to return home
CM will continue to follow up for any dcp needs
[2025-02-04] MEDS: ZETIA 10 MG PO (09:41)
--- NOTE | 2025-02-04 09:59 | CON.ONC ---
Consultation
-
Date Consultation Requested: 02/04/25
Date Consultation Performed: 02/04/25
Requesting Provider: Dena WESTFALL
Performing Provider: Zeny Frost MD
Reason for Consultation: ITP exacerbation
Impression
Impression
1) ITP
- bone marrow biopsy was performed in 2018
- start IVIg 500 mg/kg daily x 3
- can transition to steroid if needed once infectious colitis has been excluded
- side effects discussed with daughter and with pt
- daughter requests transfer of Hematology care to [place], I will see pt in follow up after D/C
2) Foul-smelling diarrhea, w/u for C.diff
3) Recent UTI s/p Macrobid
Thank you for consult, will follow along with you.
Plan
Plan
Start IVIg 500 mg/kg daily x 3, d/w daughter (POA) and pt
Patient History
History of Present Illness
89-year-old woman with history of ITP managed by Dr. Gilman at [facility]. Patient recently fell and fractured her second cervical vertebral body. She was managed at [facility] for that problem. She developed a UTI that was treated with Macrobid. Her
platelets were 50 at time of discharge. Patient had loose stool and there was concern for C. difficile. She came to the ER here and was found to have platelets of 9. She got 1 unit of platelets with improvement in platelet count to 14K. Her
hemoglobin has been dropping, most recently 8.6 as of this morning. It had been 10.2 on January 16 at which time the platelets were 33. Upon further questioning, patient may or may not have had IVIG in the past. She has had steroids with
favorable response. History was obtained in part from patient's daughter, as well as patient. Daughter has medical power of criminal attorney. Per daughter, patient has constipation and loose stools chronically, with some rectal bleeding attributed to
hemorrhoids.
Past-Medical/Surgical History
Past Medical History
hypertension
hyperlipidemia
thrombocytopenia/ITP
anemia
osteopenia
ulcerative proctitis
depression/anxiety
Past Surgical History
Hysteroscopy/em ablation(1995)
Bone Marrow [id number]
Social History
Tobacco: Smoker (1/2 pack per day, last cigarette 01/15/2025, currently using patch )
Alcohol: None
Drug: None
Living: with daughter and son-in-law (retired pharmacist) in [place]
Employment: Employed
Family History
Family History: Not pertinent
Patient Medication
�Medication �Instructions �Recorded �Confirmed �Last Taken �Type
acetaminophen 500 mg tablet 1,000 mg PO Q6HPRN PRN mild pain 02/03/25 02/03/25 02/03/25 History
(Tylenol Extra Strength)
ascorbic acid (vitamin C) 500 mg 500 mg PO DAILY Supplement 02/03/25 02/03/25 02/03/25 History
tablet (Vitamin C)
baclofen 5 mg tablet 2.5 mg PO BID Muscle Spasms 02/03/25 02/03/25 02/02/25 History
carboxymethylcellulose sodium 0.5 1 drp BOTH EYES BIDPRN PRN dryness 02/03/25 02/03/25 Unknown History
% eye drops (Refresh Tears)
carvedilol 3.125 mg tablet (Coreg) 3.125 mg PO BID Blood Pressure 02/03/25 02/03/25 Unknown History
cyanocobalamin (vitamin B-12) 1,000 mcg PO DAILY Supplement 02/03/25 02/03/25 02/03/25 History
1,000 mcg tablet
escitalopram oxalate 5 mg tablet 5 mg PO HS Mental Health/Anxiety 02/03/25 02/03/25 02/02/25 History
(Lexapro)
ezetimibe 10 mg-simvastatin 40 mg 1 tab PO DAILY High Cholesterol 02/03/25 02/03/25 02/03/25 History
tablet
ferrous sulfate 325 mg (65 mg 325 mg PO Q48H Supplement 02/03/25 02/03/25 Unknown History
iron) tablet
gabapentin 100 mg capsule 100 mg PO TID Neurological 02/03/25 02/03/25 02/02/25 History
Condition
lidocaine 4 % topical patch 1 patch topical DAILYPRN PRN back 02/03/25 02/03/25 02/03/25 History
of neck
nicotine 21 mg/24 hr daily 1 patch transdermal DAILY 02/03/25 02/03/25 02/03/25 History
transdermal patch
valsartan 80 mg tablet 80 mg PO DAILY Heart 02/03/25 02/03/25 02/03/25 History
Disease/Condition
vitamins A,C,[id number] 2,148 1 tab PO BID Supplement 02/03/25 02/03/25 02/03/25 History
mcg-113 mg-45 mg-17.4 mg tablet
(PreserVision AREDS)
Active Medications
Generic Name Dose Route Start Last Admin
Trade Name Freq PRN Reason Stop Dose Admin
Acetaminophen 650 mg 02/04/25 00:35 02/04/25 00:43
Acetaminophen 325 Mg Tablet PO 03/04/25 00:34 650 mg
Q4HPRN PRN Administration
mild pain/ANGELES/temp> 100.4F
Artificial Tears 1 drops 02/04/25 01:53
Artificial Tears Pf (Refresh) 10 Drop Droperette BOTH EYES 03/04/25 01:52
BIDPRN PRN
dryness
Atorvastatin Calcium 20 mg 02/04/25 08:00 02/04/25 08:29
Atorvastatin (Lipitor) 20 Mg Tablet PO 03/04/25 07:59 20 mg
DAILY SHAW Administration
Baclofen 2.5 mg 02/04/25 08:00 02/04/25 08:28
Baclofen 5 Mg Tablet PO 03/04/25 07:59 2.5 mg
BID SHAW Administration
Carvedilol 3.125 mg 02/04/25 08:00 02/04/25 08:29
Carvedilol 3.125 Mg Tablet PO 03/04/25 07:59 3.125 mg
BID SHAW Administration
Ezetimibe 10 mg 02/04/25 08:00 02/04/25 09:41
Ezetimibe (Zetia) 10 Mg Tablet PO 03/04/25 07:59 10 mg
DAILY SHAW Administration
Escitalopram Oxalate 5 mg 02/04/25 02:00 02/04/25 03:10
Escitalopram 5 Mg Tablet PO 03/04/25 01:59 5 mg
HS SHAW Administration
Ferrous Sulfate 325 mg 02/04/25 08:00 02/04/25 08:29
Ferrous Sulfate 325 Mg Tablet PO 03/04/25 07:59 325 mg
Q48H SHAW Administration
Gabapentin 100 mg 02/04/25 02:00 02/04/25 08:28
Gabapentin 100 Mg Capsule PO 03/04/25 01:59 100 mg
TID SHAW Administration
Sodium Chloride 1,000 mls @ 80 mls/hr 02/04/25 00:30 02/04/25 00:38
Nss IV 1,000 mls
[id number] SHAW Administration
Nicotine 21 mg 02/04/25 08:00 02/04/25 08:27
Nicotine 21 Mg Patch TRANSDERM 03/04/25 07:59 21 mg
DAILY SHAW Administration
Patch Removal 0 patch 02/04/25 22:00
Remove Nicotine Patch REMOVE 03/04/25 21:59
HS SHAW
Sodium Chloride 0 flush 02/04/25 01:00
Sodium Chloride 0.9% (Flush) Syringe IV 03/04/25 00:59
PER PROTOCOL SHAW
Valsartan 80 mg 02/04/25 08:00 02/04/25 08:29
Valsartan 80 Mg Tablet PO 03/04/25 07:59 80 mg
DAILY SHAW Administration
Review of Systems
-
History Source: Patient, Family and Records
All Other Systems: Reviewed and Negative
Constitutional: Reports No Symptoms
EENT: Reports No Symptoms
Respiratory: Reports No Symptoms
Cardiac: Reports No Symptoms
GI: Reports Diarrhea and Constipated
Breast: Reports No Symptoms
: Reports No Symptoms
Musculoskeletal: Reports No Symptoms
Skin: Reports Other (Persistent ecchymoses)
Neuro: Reports No Symptoms
Endocrine: Reports No Symptoms
Hematologic/Lymphatic: Reports Bruising
Allergy / Immunology: Reports No Symptoms
Psych: Reports No Symptoms
Physical Exam
-
General: Well Developed and Well Nourished
HEENT: Moist Mucous Membranes; Negative Jaundice
Cardiology: Normal Sinus Rhythm, S1 and S2
Pulmonary: Clear; Negative Wheezes or Rales
GI: Soft
Musculoskeletal: No Clubbing, No Cyanosis and No Edema
Extremities: No C/C/E
Neurology: Non Focal
Skin: Warm and Dry; Negative No Ecchymosis
Hematologic / Lymphatic: No Lymphadenopathy and No Petechiae
Psych: Calm and Intact Judgement/Insight
Labs
Lab Results
WBC 11.8 10^3/uL (4.8-10.8) H 02/04/25 05:38
RBC 2.77 10^6/uL (4.20-5.40) L 02/04/25 05:38
Hgb 8.6 g/dL (12.0-16.0) L 02/04/25 05:38
Hct 26.8 % (37.0-47.0) L 02/04/25 05:38
MCV 96.8 fL (81.0-99.0) 02/04/25 05:38
MCH 31.0 pg (27.0-31.0) 02/04/25 05:38
MCHC 32.1 g/dL (33.0-37.0) L 02/04/25 05:38
RDW 14.8 % (11.5-14.5) H 02/04/25 05:38
Plt Count 14 10^3/uL (130-400) L* D 02/04/25 05:38
MPV 14.3 fL (7.4-10.4) H 02/04/25 05:38
Abs Immat Gran (auto) 0.1 10^3/uL (0-0.05) H 02/03/25 13:28
Absolute Neuts (auto) 9.5 10^3/uL (1.4-6.5) H 02/03/25 13:28
Absolute Lymphs (auto) 1.7 10^3/uL (1.2-3.4) 02/03/25 13:28
Absolute Monos (auto) 0.9 10^3/uL (0.1-0.6) H 02/03/25 13:28
Absolute Eos (auto) 0.6 10^3/uL (0-0.7) 02/03/25 13:28
Absolute Basos (auto) 0.1 10^3/uL (0-0.2) 02/03/25 13:28
Immature Gran % 0.5 % (0-0.5) 02/03/25 13:28
Neutrophils % 73.8 % (42.2-75.2) 02/03/25 13:28
Lymphocytes % 13.4 % (20.5-51.1) L 02/03/25 13:28
Monocytes % 6.7 % (1.7-9.3) 02/03/25 13:28
Eosinophils % 5.0 % (0-6) 02/03/25 13:28
Basophils % 0.6 % (0-2) 02/03/25 13:28
Creatinine 0.6 mg/dL (0.6-1.0) 02/04/25 05:38
Vital Signs
Vital Signs
Temp Pulse Resp BP Pulse Ox
97.4 F 77 16 123/62 96
02/04/25 09:36 02/04/25 09:36 02/04/25 09:36 02/04/25 09:36 02/04/25 09:36
[2025-02-04 10:48] LABS: Nucleated Red Blood Cells % 0 %
[2025-02-04 12:13] LABS: C-Reactive Protein 37.30 mg/L (0.0-10.00)
[2025-02-04] MEDS: BENADRYL 12.5 MG IV (14:07)
[2025-02-04] MEDS: GAMMAGARD 200 IV (14:16)
--- NOTE | 2025-02-04 15:29 | W.PN.HOSP.TC ---
Today's Communication/Plan
-
Assessment / Plan
Assessment / Plan
ITP
Start IVIG
Await C. difficile negative per hematology transition to steroid
Diarrhea
Await C. difficile/stool culture
CRP ordered along with fecal calprotectin
IV fluids
Clear liquid diet advance as tolerated to low residue diet per GI recommendations
Monitor off of antibiotics
Non-anion gap metabolic acidosis
Likely secondary to diarrhea
IVF
HTN
Continue antihypertensives
HLD
Continue lipitor
Anticipated Discharge: > 48 hours
Subjective/Interval History
-
Date of Service: February 04, 2025
Seen and examined. No new complaints. No acute overnight events.
No further episodes of diarrhea today
Heart daughter who is a retired respiratory therapist. Concerned about C. difficile based off of how stool smelt
Objective Data
-
Labs:
Laboratory Results
02/04/25
05:38
WBC 11.8 H
Hgb 8.6 L
Hct 26.8 L
Plt Count 14 L* D
Sodium 137
Potassium 4.5
Chloride 111 H
Carbon Dioxide 20 L
BUN 19 H
Creatinine 0.6
Glucose 131 H
Calcium 8.2 L
Vital Signs:
Vital Signs
Temp Pulse Resp BP Pulse Ox
97.4 F 52 16 109/58 96
02/04/25 09:36 02/04/25 15:00 02/04/25 09:36 02/04/25 15:00 02/04/25 13:20
I&O
02/03/25 02/04/25 02/05/25
06:59 06:59 06:59
Intake Total 250 / 250
Balance 250 / 250
Physical Exam
-
General: Well Nourished, No Apparent Distress, Comfortable and Other (Right facial bruising, left subconjunctival hemorrhage)
HEENT: Normocephalic
Respiratory: Clear to Auscultation
Cardiac: Regular Rhythm and S1/S2
GI: Soft, Nontender, Nondistended and Normal Bowel Sounds
Genito-urinary: No Costovertebral Tender and Clear Urine
Musculoskeletal: No Clubbing, No Cyanosis and No Edema
Neuro: Awake and AO x 3
[2025-02-04] MEDS: REMOVE NICOTINE PATCH 1 PATCH REMOVE (21:08)
[2025-02-05] VITALS (12 sets, daily range): BP systolic 111–136; BP diastolic 50–72
--- NOTE | 2025-02-05 01:30 | PTCARENOTE ---
Pt has been anxious about having a BM. Pt wanted a stool softer so she can send a sample for Cdiff. Pt was educated about Cdiff and if she hasn't had a BM for a couple day the likelihood of her having bacteria is less. If she does have a BM and is
solid lab will not accept it. She was able to calm down
[2025-02-05] MEDS: NSS 1000 IV (03:38)
--- NOTE | 2025-02-05 06:14 | W.PN.GI.CBS2 ---
Today's Communication / Plan
-
Having formed stool, no concern for C Diff with resolution of symptoms. Low residue diet as tolerated. Continue to observe off abx. Check anemia w/u and encouraged close outpatient f/u with her primary GI after discharge. Rest of care as below. Will
s/off, please recontact with questions/concerns.
Assessment / Plan
-
Ms. 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
with abdominal pain and diarrhea. Found to have colitis on CT imaging and GI has been consulted for further evaluation and management.
#Acute, Uncomplicated L-sided Colitis
#Non-Bloody, Watery Diarrhea
#Recent Abx (Macrobid from prior UTI)
#Mild Leukocytosis
#Hx of Ulcerative Proctitis (off therapy, reportedly in remission)
#Thrombocytopenia #History of ITP
Impression: Patient presenting with generalized lower abdominal discomfort, weakness and multiple episodes of watery, nonbloody looser stools after recent antibiotics (Macrobid) for UTI. Found to have mild leukocytosis along with left-sided, acute
uncomplicated colitis involving the sigmoid and descending colon. Clinically, presentation seems most consistent with C. difficile versus other infectious colitis. She does have a history of ulcerative proctitis however this has been
well-controlled and she was without any bloody stools or other chronicity of symptoms. Reports three prior colonoscopy years ago (no records) and reports everything as normal/in remission. Otherwise, she is without any other concern for ischemia
given her presentation and location on CT imaging.
Currently reports improving symptoms without any abdominal pain, bloody stools, fever/chills or other localizing/constitutional symptoms. She was without any recent BM in 2-3 days prior to admission however recent bowel movement later this morning
with formed brown/green stool. In discussion with nursing, this was well-formed and not consistent with C. difficile. Unfortunately, sample not obtained as flushed in toilet bowl. Regardless, not consistent with C. difficile as she was previously
without a bowel movement for over 3 days and having formed brown stool without any blood or watery diarrhea. Still suspect infectious etiology and much less likely related to her IBD given her history of ulcerative proctitis as without any bloody
stools or chronicity of symptoms. She is anemic but would defer pursuing a colonoscopy at this time and again likely an acute infectious process. Mild to moderately elevated CRP however does not distinguish between acute or IBD. See she should
still follow-up with her primary GI, Dr. Vargas (IBD doctor), with [facility] (at [facility]) for follow-up as an outpatient.
Recommendations:
- Low-residue, low-fiber diet as tolerated
- Presentation not consistent with C Diff given formed stool and without diarrhea since admission
- May discontinue isolation precautions from GI standpoint
- Still recommend checking stool culture if patient has another BM
- Would still hold off on empiric abx as without further leukocytosis and resolution of symptoms as well as to avoid additional abx (ie putting at risk for potential C Diff in future)
- No other concern for IBD/ulcerative proctitis given her symptoms and previously had a heme-negative brown stool
- No plans for colonoscopy at this time, discussed outpatient follow-up with her primary GI, Dr Vargas as outpatient with [facility] ([facility])
- Check anemia w/u: iron studies, ferritin, folate/B12
- Heme consulted given her known ITP
- Strict avoidance of all NSAIDs
- Pain control and antiemetics as needed
- Rest of care as per primary team
GI will sign off, please recontact with any questions or concerns.
Subjective
Subjective
Date of Service: February 05, 2025
- No acute events overnight, no reported BM since admission
- CRP 37.30
- Hgb down-trending 9.0 -> 8.6 -> 7.8 without overt bleeding
Resting comfortably and denies any recent BM or watery stools as of early this AM. No other fevers, chills, night sweats or other constitutional symptoms. Feeling well and tolerating diet.
Messaged from nurse via TT that patient had a formed, moderate-green stool without any blood. Unfortunately, not collected as flushed in toilet.
Objective
Data Reviewed
Laboratory Data:
Laboratory Results
Total Bilirubin 0.4 mg/dl (0.2-1.3) 02/03/25 13:28
AST 16 U/L (14-36) 02/03/25 13:28
ALT 11 U/L (0-35) 02/03/25 13:28
Alkaline Phosphatase 101 U/L (38-126) 02/03/25 13:28
Vital Signs and I&O:
Vital Signs
Temp Pulse Resp BP Pulse Ox
99.3 F 83 17 106/51 96
02/04/25 23:17 02/04/25 23:17 02/04/25 23:17 02/04/25 23:17 02/04/25 23:17
I&O
02/03/25 02/04/25 02/05/25
06:59 06:59 06:59
Intake Total 250 / 250 780 / 780
Balance 250 / 250 780 / 780
Physical Exam
Physical Exam
HEENT: Anicteric and Moist mucous membranes
Pulmonary: Other (Normal WOB on room air)
GI: Soft, Non Distended and Non Tender
Extremities: No Edema
Neuro: Non Focal
[2025-02-05 07:30] LABS: APTT 29.7 Sec (23.4-35.0); INR 1.12; PT 14.5 Sec (11.4-14.6)
[2025-02-05 07:36] LABS: Hematocrit 23.6 % (37.0-47.0); Hemoglobin 7.8 g/dL (12.0-16.0); Mean Corp Hgb Conc. 33.1 g/dL (33.0-37.0); Mean Corpuscular Volume 94.0 fL (81.0-99.0); Platelet Count 75 10^3/uL (130-400); Red Cell Dist. Width 15.2 % (11.5-14.5)
[2025-02-05 07:44] LABS: Blood Urea Nitrogen 16 mg/dl (7-17); Calcium 8.0 mg/dl (8.4-10.2); Carbon Dioxide 22 mmol/L (22-30); Chloride 115 mmol/L (98-107); Estimated Creatinine Clearance 35 ml/min; Glucose 86 mg/dl (70-99); Potassium 4.8 mmol/L (3.5-5.1); Sodium 140 mmol/L (135-145); eGFR > 60.00
[2025-02-05] MEDS: DIOVAN 80 MG PO (08:35)
[2025-02-05] MEDS: LIORESAL 2.5 MG PO ×2 (08:35→20:58)
[2025-02-05] MEDS: NEURONTIN 100 MG PO ×3 (08:35→20:58)
[2025-02-05] MEDS: LIPITOR 20 MG PO (08:36)
[2025-02-05] MEDS: NICODERM TRANSDERMAL 21 MG TRANSDERM (08:36)
[2025-02-05] MEDS: COREG 3.125 MG PO ×2 (08:36→20:58)
[2025-02-05] MEDS: ZETIA 10 MG PO (08:36)
[2025-02-05 11:48] LABS: Iron 45 ug/dl (37-170)
[2025-02-05 11:57] LABS: Total Iron Binding Capacity 243 ug/dl (265-497)
--- NOTE | 2025-02-05 11:57 | W.PN.HOSP.TC ---
Today's Communication/Plan
-
Assessment / Plan
Assessment / Plan
ITP
Start IVIG x 3 days. Day 2/3
Await C. difficile negative per hematology transition to steroid
Diarrhea, resolved
Non-anion gap metabolic acidosis, resolved
HTN
Continue antihypertensives
HLD
Continue lipitor
Anticipated Discharge: 24 - 48 hours
Subjective/Interval History
-
Date of Service: February 05, 2025
Seen and examined. No new complaints. No acute overnight events.
Objective Data
-
Labs:
Laboratory Results
02/05/25
06:51
WBC 9.3
Hgb 7.8 L
Hct 23.6 L
Plt Count 75 L D
PT 14.5
INR 1.12
APTT 29.7
Sodium 140
Potassium 4.8
Chloride 115 H
Carbon Dioxide 22
BUN 16
Creatinine 0.8
Glucose 86
Calcium 8.0 L
Vital Signs:
Vital Signs
Temp Pulse Resp BP Pulse Ox
98.3 F 80 16 127/59 96
02/05/25 07:00 02/05/25 08:36 02/05/25 07:00 02/05/25 08:36 02/05/25 07:00
I&O
02/04/25 02/05/25 02/06/25
06:59 06:59 06:59
Intake Total 250 / 250 780 / 780
Balance 250 / 250 780 / 780
Physical Exam
-
General: Well Nourished, No Apparent Distress and Comfortable
HEENT: Normocephalic and Moist Mucous Membranes
Respiratory: Clear to Auscultation
Cardiac: Regular Rhythm and S1/S2
GI: Soft, Nontender, Nondistended and Normal Bowel Sounds
Musculoskeletal: No Clubbing and No Cyanosis
Skin: Warm and Dry
Neuro: Awake and AO x 3
Psych: Calm
--- NOTE | 2025-02-05 12:16 | W.PN.ONC2 ---
Today's Communication / Plan
-
Proceed for today's IVIg (day 2).
If platelets>100K in AM 02/06, okay to skip day 3-4 and d/c home on prednisone 40 mg daily with PPI.
We will taper as outpt.
Impression
Impression
1) ITP
- bone marrow biopsy was performed in 2018
- For IVIg 400 mg/kg daily x 4, today is day 2
- can transition to steroid if needed once infectious colitis has been excluded
- side effects discussed with daughter and with pt
- daughter requests transfer of Hematology care to [place], I will see pt in follow up after D/C
2) Foul-smelling diarrhea, w/u for C.diff
3) Recent UTI s/p Macrobid
Thank you for consult, will follow along with you.
Plan
Plan
IVIg 400 mg/kg daily x 4, today is day 2.
If platelets >100K tomorrow then okay to skip the last two doses of IVIg and start prednisone 40 mg daily, to be tapered by our group as outpt.
Subjective/Objective
Chief Complaint
Hematology follow up of ITP
Subjective
Denies complaint today. Daughter at bedside.
Vital Signs:
Vital Signs
Temp Pulse Resp BP Pulse Ox
98.3 F 80 16 127/59 96
02/05/25 07:00 02/05/25 08:36 02/05/25 07:00 02/05/25 08:36 02/05/25 07:00
Lab Results:
Laboratory Data
WBC 9.3 10^3/uL (4.8-10.8) 02/05/25 06:51
Hgb 7.8 g/dL (12.0-16.0) L 02/05/25 06:51
Plt Count 75 10^3/uL (130-400) L D 02/05/25 06:51
PT 14.5 Sec (11.4-14.6) 02/05/25 06:51
INR 1.12 02/05/25 06:51
APTT 29.7 Sec (23.4-35.0) 02/05/25 06:51
eGFR > 60.00 02/05/25 06:51
Physical Exam
Awake, alert, non-toxic
Extensive facial ecchymoses as previously
Orders
Orders
Orders From Last 24 Hours
02/04/25 13:00
Acetaminophen [Tylenol] 650 mg PO DAILY@1300
Diphenhydramine [Benadryl] 12.5 mg IV DAILY@1300
02/05/25 06:51
PTT IN AM
Prothrombin Time IN AM
[2025-02-05 12:24] LABS: Ferritin 58.1 ng/ml (11.1-264.0)
[2025-02-05 12:55] LABS: Folate 9.2 ng/ml (2.76-20)
[2025-02-05] MEDS: BENADRYL 12.5 MG IV (13:34)
[2025-02-05] MEDS: TYLENOL 650 MG PO (13:34)
[2025-02-05 13:57] LABS: Vitamin B12 > 1000 pg/ml (239-931)
[2025-02-05] MEDS: GAMMAGARD 200 IV (14:25)
--- NOTE | 2025-02-05 14:58 | PTCARENOTE ---
pt receiving second day of IVIG. platelets 75 this morning. daughter and patient educated on process and ivig initiated. protocol followed and vitals charted. see worklist.
[2025-02-05] MEDS: LEXAPRO 5 MG PO (20:58)
[2025-02-05] MEDS: REMOVE NICOTINE PATCH 1 PATCH REMOVE (21:08)
[2025-02-06 07:00] VITALS: BP 135/66
[2025-02-06] MEDS: COREG 3.125 MG PO (07:56)
[2025-02-06] MEDS: LIPITOR 20 MG PO (07:57)
[2025-02-06] MEDS: DIOVAN 80 MG PO (07:57)
[2025-02-06] MEDS: NEURONTIN 100 MG PO (07:57)
[2025-02-06] MEDS: FEOSOL 325 MG PO (07:57)
[2025-02-06] MEDS: ZETIA 10 MG PO (07:57)
[2025-02-06] MEDS: LIORESAL 2.5 MG PO (07:57)
[2025-02-06] MEDS: NICODERM TRANSDERMAL 21 MG TRANSDERM (07:58)
[2025-02-06] MEDS: TYLENOL 650 MG PO (08:07)
[2025-02-06 10:19] LABS: Hematocrit 26.7 % (37.0-47.0); Hemoglobin 8.5 g/dL (12.0-16.0); Mean Corp Hgb Conc. 31.8 g/dL (33.0-37.0); Mean Corpuscular Volume 97.8 fL (81.0-99.0); Platelet Count 100 10^3/uL (130-400); Red Cell Dist. Width 15.4 % (11.5-14.5)
[2025-02-06 11:11] LABS: Blood Urea Nitrogen 15 mg/dl (7-17); Calcium 8.9 mg/dl (8.4-10.2); Carbon Dioxide 20 mmol/L (22-30); Chloride 112 mmol/L (98-107); Estimated Creatinine Clearance 40 ml/min; Glucose 77 mg/dl (70-99); Potassium 4.6 mmol/L (3.5-5.1); Sodium 139 mmol/L (135-145); eGFR > 60.00
[2025-02-06] MEDS: BENADRYL IV (12:06)
[2025-02-06] MEDS: TYLENOL PO (12:06)
--- NOTE | 2025-02-06 13:21 | W.DCSUMMARY ---
Discharge Summary
Discharge Data
Date of Admission: 02/03/25
Date of Discharge: 02/06/25
-
Pending Results: No
Hospital Course
89-year-old female with past medical history significant for hypertension, hyperlipidemia, thrombocytopenia, anemia, osteopenia, ulcerative proctitis and depression/anxiety
Presented for concern of Cdiff. Fortunately, CDiff study was not completed due to stool not being consistent. Unfortunately, noted to have a platelet count <10 without active bleeding but known history of ITP. Therefore, Hematology consulted,
started IVIG with immediate improvement in platelet count. Day 3 noted to have a platelet count of 100K and hematology rec to discharge home with oral steroids of 40mg daily outpatient follow up to plan to begin taper once seen in the outpatient
setting.
CTAP
IMPRESSION:
Mild to moderate wall thickening of the descending colon and sigmoid colon, most suggestive of a nonspecific colitis. Limited by absence of intravenous and oral contrast.
Other chronic findings, as detailed above.
Was seen and examined and day of discharge which was 02/06. No new complaints. No acute overnight events
General: Well Nourished, No Apparent Distress and Comfortable
HEENT: Normocephalic and Moist Mucous Membranes
Respiratory: Clear to Auscultation
Cardiac: Regular Rhythm and S1/S2
GI: Soft, Nontender, Nondistended and Normal Bowel Sounds
Musculoskeletal: No Clubbing and No Cyanosis
Skin: Warm and Dry
Neuro: Awake and AO x 3
Psych: Calm
Discharge Plan
-
Patient Disposition: Home with Home Care
Discharge Diagnosis/Procedures: ITP
Viral Gastroenteritis
Condition: Good
Diet: As tolerated, Low Fat, Low Cholesterol, Low Sodium, Low Residue and No added salt
Activity: As tolerated
Blood Work: CBC with hematology or PCP in 1 week. Call PCP for script
Activity Restrictions/Additional Instructions:
Presented for concern of Cdiff. Fortunately, CDiff study was not completed due to stool not being consistent. Unfortunately, noted to have a platelet count <10 without active bleeding but known history of ITP. Therefore, Hematology consulted,
started IVIG with immediate improvement in platelet count. Day 3 noted to have a platelet count of 100K and hematology rec to discharge home with oral steroids of 40mg daily outpatient follow up to plan to begin taper once seen in the outpatient
setting.
CTAP
IMPRESSION:
Mild to moderate wall thickening of the descending colon and sigmoid colon, most suggestive of a nonspecific colitis. Limited by absence of intravenous and oral contrast.
Other chronic findings, as detailed above.
Referrals:
Davion Guerrero DO [Family Provider, Rheumatology]
Zeny Weber MD [Active, Hematology / Oncology] - in one week
Prescriptions:
New
prednisone 10 mg tablet
40 mg PO DAILY Qty: 56 0RF
Rx Instructions:
continue 40mg until see outpatient heme to discuss taper initation
Continued
valsartan 80 mg Tablet
80 mg PO DAILY
carvedilol [Coreg] 3.125 mg Tablet
3.125 mg PO BID
escitalopram oxalate [Lexapro] 5 mg Tablet
5 mg PO HS
ezetimibe-simvastatin 10-40 mg Tablet
1 tab PO DAILY
lidocaine 4 % Adhesive Patch,Medicated
1 patch TOPICAL DAILYPRN PRN (Reason: back of neck)
cyanocobalamin (vitamin B-12) 1,000 mcg Tablet
1,000 mcg PO DAILY
acetaminophen [Tylenol Extra Strength] 500 mg Tablet
1,000 mg PO Q6HPRN PRN (Reason: mild pain)
ascorbic acid (vitamin C) [Vitamin C] 500 mg Tablet
500 mg PO DAILY
carboxymethylcellulose sodium [Refresh Tears] 0.5 % Drops
1 drp BOTH EYES BIDPRN PRN (Reason: dryness)
ferrous sulfate 325 mg (65 mg iron) Tablet
325 mg PO Q48H
nicotine 21 mg/24 hr Patch 24 Hour
1 patch TRANSDERMAL DAILY
gabapentin 100 mg Capsule
100 mg PO TID
PreserVision AREDS 2,148 mcg-113 mg-45 mg-17.4mg Tablet
1 tab PO BID
baclofen 5 mg Tablet
2.5 mg PO BID
Discharge Orders:
Discharge Patient (As Directed); Ordered 02/06/25
Ordered By: David Thapa
Discharge Date and Time
Print Language: GEORGIAN
[2025-02-06 14:10] VITALS: BP 131/63
--- NOTE | 2025-02-06 14:31 | CM ---
CM reviewed chart and noted dc order
Pt discharged prior to CM meeting with her or issuing IMM
Conference call with pt and dtr post-dc
Pt current with [facility] and would like [facility] referral sent via [facility] along with VN order
Discharge Disposition- home with [facility]
Fax- [phone]
== END 2025-02-06 14:15 | disposition home health service (06) | DRG 813 ==
LOC: 2 NORTH 22:32
PROVIDERS: Emergency Medicine; Nurse Practitioner Family; Physician Assistant; ADMITTING PHYSICIAN Internal Medicine; ATTENDING PHYSICIAN Hospitalist; CONSULT PHYSICIAN Internal Medicine Hematology & Oncology; CONSULT PHYSICIAN Student in an Organized Health Care Education/Training Program; EMERGENCY PHYSICIAN Student in an Organized Health Care Education/Training Program; FAMILY PHYSICIAN Internal Medicine Rheumatology
PROC: 30233R1 Transfusion of Nonautologous Platelets into Peripheral Vein, Percutaneous Approach (ICD-10-PCS; 2025-02-03)
DX: D69.3 Immune thrombocytopenic purpura (principal); K51.20 Ulcerative (chronic) proctitis without complications; E87.20 Acidosis, unspecified; R64 Cachexia; N39.0 Urinary tract infection, site not specified; F32.A Depression, unspecified; A08.4 Viral intestinal infection, unspecified; F17.210 Nicotine dependence, cigarettes, uncomplicated; I10 Essential (primary) hypertension; E78.00 Pure hypercholesterolemia, unspecified; D64.9 Anemia, unspecified; M85.80 Other specified disorders of bone density and structure, unspecified site; Z66 Do not resuscitate; Z68.22 Body mass index [BMI] 22.0-22.9, adult; Z79.899 Other long term (current) drug therapy; Z87.440 Personal history of urinary (tract) infections
CPT/HCPCS: 36430; 74176; 80048; 80053; 82607; 82728; 82746; 83540; 83550; 83880; 85025; 85027; 85610; 85730; 86140; 86850; 86900; 86901; 96361; 96374; 96375; 99285; J1569; P9073